=== PATIENT | male | born 1985 | race African-American/Black ===

== ENCOUNTER 2019-03-21 13:09 | Emergency (ER) | payer OTHER ==
[2019-03-21] MEDS ORDERED: IBUPROFEN 800 MG TABLET PO ONE (14:20)
--- NOTE | 2019-03-21 14:21 | ER Document Report ---
HPI - HPI Patient complains to provider of: laceration forehead Time Seen by Provider: 03/21/19 13:51 Onset: Just prior to arrival Onset/Duration: Sudden Quality of pain: Achy Pain Level: 1 Context: This 33-year-old male presents emergency department with a vertical laceration to his forehead right above his right eyebrow. No active bleeding. Patient reports tetanus is up-to-date. Reports he received one 5 years ago when he stepped on a nail. Patient reports he was hit in the face with a trash can handle while working. He complains of pain around his right side of his nostril and under his right eye. No vision complaints. No other complaints such as fever vomiting diarrhea. 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 IN LAST 30 DAYS: No - HEENT HEENT: Normocephalic, PERRLA. negative: Atraumatic - Superficial laceration vertical approximately 15 mm right above the right eyebrow no active bleeding, Conjuctival Injection Notes: Vertical laceration noted right above the right elbow, no active bleeding. Patient also complains of pain nasally right side slight swelling noted. Patient complains of some pain right lower orbit - NECK Neck: Normal Inspection, Supple. negative: Lymphadenopathy-Left, Lymphadenopathy-Right - RESPIRATORY Respiratory: No Respiratory Distress - CARDIOVASCULAR Cardiovascular: Regular Rate - GI/ABDOMEN Gastrointestinal: Abdomen Non-Tender - MUSCULOSKELETAL/EXTREMETIES Musculoskeletal/Extremeties: MAEW, FROM, Non-Tender - NEURO Level of Consciousness: Awake, Alert, Appropriate Motor/Sensory: No Motor Deficit - DERM Integumentary: Warm, Dry Adult Front & Back Diagram: 1 - 15 mm vertical laceration noted no active bleeding Course - Re-evaluation Re-evalutation: 03/21/19 14:38 33-year-old male that presents to the emergency department with a laceration above his right eyebrow. vertical laceration approximately 15 millimeters noted above his right eyebrow no active bleeding superficial. Patient reports he was at work when a trash can handle flew off and hit him in the face. Patient complains of right sided nasal pain and some tenderness under his right eye. Patient reports his tetanus is up-to-date. Area will be cleaned Dermabond applied. X-rays ordered with visual acuity. 03/21/19 16:06 X-rays negative. Patient laceration cleaned really well with Shur-Clens and normal saline. Dermabond applied patient tolerated procedure well. Patient instructed on rest monitor site for infection return for concerns. He verbalized understanding to all instructions. Dictation of this chart was performed using voice recognition software; therefore, there may be some unintended grammatical errors. Orbit X-Ray 03/21/19 14:20 IMPRESSION: NO FOREIGN BODY OR FRACTURE OF THE FACIAL BONES. - Vital Signs Vital signs: Temp Pulse Resp BP Pulse Ox 98.6 F 85 18 159/79 H 100 03/21/19 13:20 03/21/19 13:20 03/21/19 13:20 03/21/19 13:20 03/21/19 13:20 Procedures - Laceration/Wound Repair Right Face Wound length (cm): 1 Wound's Depth, Shape: Superficial Laceration pre-procedure: Shur-Clens applied Wound Repaired With: Dermabond Discharge - Discharge Clinical Impression: Laceration Contusion Qualifiers: Encounter type: initial encounter Contusion area: head Contusion of head detail: nose Qualified Code(s): S00.33XA - Contusion of nose, initial encounter Condition: Stable Disposition: HOME, SELF-CARE Instructions: Contusion ([facility]), Use of Bsmx-Esu-Ngnrwut Ibuprofen ([facility]), Skin Adhesive Closure ([facility]) Additional Instructions: *You have been treated for a laceration closed with Dermabond & contusion *Monitor the site for signs of infection such as increasing pain, redness, swelling, warmth *Keep the area clean Take Tylenol or Motrin for the pain *Follow up with a primary care provider within one week for recheck *Return to ED for signs of infection, worsening condition, changes, needs Monitor your blood pressure. Your blood pressure was elevated today. This may be because you were anxious, in pain or because you need medication. It is important to follow up with your primary care provider for full evaluation. Forms: Elevated Blood Pressure, Return to Work
--- NOTE | 2019-03-21 15:43 | RADIOLOGY REPORT (SQ) ---
EXAM DESCRIPTION: ORBITS 4 COMPLETED DATE/TIME: 03/21/2019 3:19 pm REASON FOR STUDY: hit in forehead, nose with trash handle, laceratio COMPARISON: None. NUMBER OF VIEWS: Three view. TECHNIQUE: Images of the facial bones acquired. LIMITATIONS: None. FINDINGS: ORBITS: No fracture. No foreign body. SINUSES: No mucosal thickening. No air fluid levels. FACIAL BONES: No fracture. OTHER: No nasal bone fracture. IMPRESSION: NO FOREIGN BODY OR FRACTURE OF THE FACIAL BONES. TECHNICAL DOCUMENTATION: JOB ID: [id number] [employer]- All Rights Reserved Reading location - IP/workstation name: [email or web address]
[2019-03-21 16:21] VITALS: BP 138/89
== END 2019-03-21 16:21 | disposition home or self-care (01) ==
LOC: ER 13:09
DX: S01.81XA Laceration without foreign body of other part of head, initial encounter (principal); S00.33XA Contusion of nose, initial encounter; W22.8XXA Striking against or struck by other objects, initial encounter; Y99.0 Civilian activity done for income or pay; F17.210 Nicotine dependence, cigarettes, uncomplicated
CPT/HCPCS: 70200; 99283